=== PATIENT | female | born 1970 | race Caucasian/White ===

== ENCOUNTER → 2023-08-15 09:09 | Outpatient (CLI) | payer BC, SELFPAY ==
--- NOTE | 2023-08-15 09:13 | DI.RAD.S_ITS ---
PROCEDURE: XR FOOT RT MIN 3V INDICATIONS: invert ankle 2dPTA, prox 4/5 meta tendr reduc weight bear TECHNIQUE: 3 views of the foot were acquired. COMPARISON: None. FINDINGS: Bones: No fractures or dislocations. No suspicious bony lesions. Soft tissues: No tibiotalar joint effusion. Achilles tendon appears normal. IMPRESSION: No acute bony abnormality. Dictated by: Alin Fernandez M.D. on 08/15/2023 at 9:51 Approved by: Alin Fernandez M.D. on 08/15/2023 at 9:54
--- NOTE | 2023-08-15 09:13 | DI.RAD.S_ITS ---
PROCEDURE: XR KNEE LT 3V INDICATIONS: lateral joint tenderness TECHNIQUE: 3 views of the knee were acquired. COMPARISON: None. FINDINGS: Bones: No fractures or dislocations. No suspicious bony lesions. Soft tissues: No joint effusion. No suspicious soft tissue calcifications. IMPRESSION: Normal left knee Dictated by: Alin Fernandez M.D. on 08/15/2023 at 9:54 Approved by: Alin Fernandez M.D. on 08/15/2023 at 9:55
== END ==
PROVIDERS: Referring Provider Student in an Organized Health Care Education/Training Program; Visit Provider Student in an Organized Health Care Education/Training Program
DX: S93.601A Unspecified sprain of right foot, initial encounter (principal); M25.562 Pain in left knee; W19.XXXA Unspecified fall, initial encounter
CPT/HCPCS: 73562; 73630

== ENCOUNTER → 2023-12-14 08:29 | Outpatient (CLI) | payer OTHER, SELFPAY ==
[2023-12-14 09:13] LABS: Add Manual Diff / Slide Review NO; Basophils Absolute Auto 0 /uL (0-100); Eosinophils Absolute Auto 100 /uL (0-450); Hematocrit 44.2 % (36-46); Hemoglobin 15.6 g/dL (12.0-16.0); Lymphocytes Absolute Auto 1100 /uL (1100-4500); Lymphocytes Percent Auto 24.2 % (25-40); Mean Corpuscular HGB Conc 35.4 % (30-36); Mean Corpuscular Hemoglobin 31.8 PG (26-34); Mean Corpuscular Volume 89.8 fL (80-100); Monocytes Absolute Auto 400 /uL (0-900); Monocytes Percent Auto 8.9 % (3-14); Neutrophils Absolute Auto 3000 /uL (1500-7000); Neutrophils Percent Auto 63.9 % (50-75); Platelet Count 209 X10^3/uL (150-400); Red Blood Cell Count 4.92 X10^6/uL (4.0-5.2); Red Cell Distribution Width 13.3 % (11.6-14.8); White Blood Cell Count 4.7 X10^3/uL (4.5-11.0)
[2023-12-14 09:43] LABS: Alanine Aminotransferase 15 IU/L (<35); Albumin 4.3 g/dL (3.5-5.0); Albumin Globulin Ratio 1.4 (1.0-2.8); Alkaline Phosphatase 59 U/L (38-126); Aspartate Aminotransferase 23 IU/L (14-36); Bilirubin Total 1.2 mg/dL (0.2-1.3); Blood Urea Nitrogen 14 mg/dL (7-17); Calcium 9.6 mg/dL (8.4-10.2); Carbon Dioxide 29 mmol/L (22-32); Chloride 104 mmol/L (98-107); Cholesterol 182 mg/dL (140-199); Estimated Glomerular Filt Rate > 60 mL/min (>60); Glucose 77 mg/dL (70-100); HDL Cholesterol 72 mg/dL (40-60); HEMOLYSIS < 15 (0-50); LDL Cholesterol Calculated 98 mg/dL (<100); Potassium 3.1 mmol/L (3.4-5.1); Sodium 139 mmol/L (137-145); Total Protein 7.3 g/dL (6.3-8.2); Triglycerides 61 mg/dL (35-150)
[2023-12-14 10:31] LABS: Free T3, Triiodothyronine Free 3.04 pg/mL (2.77-5.27); Free T4, Direct Thyroxine 1.39 ng/dL (0.78-2.19)
[2023-12-14 10:44] LABS: Thyroid Stimulating Hormone 2.12 uIU/mL (0.47-4.68)
[2023-12-15 10:30] LABS: Thyroid Peroxidase Antibodies 51 IU/mL (0-34)
== END ==
LOC: LAB 08:31
PROVIDERS: PCP Naturopath; Referring Provider Naturopath; Visit Provider Naturopath
DX: Z00.00 Encounter for general adult medical examination without abnormal findings (principal)
CPT/HCPCS: 36415; 80053; 80061; 84439; 84443; 84481; 85025; 86376

== ENCOUNTER → 2024-01-14 11:49 | Outpatient (CLI) | payer OTHER, SELFPAY ==
[2024-01-14 13:26] LABS: Carbon Dioxide 27 mmol/L (22-32); Chloride 108 mmol/L (98-107); HEMOLYSIS < 15 (0-50); Potassium 4.1 mmol/L (3.4-5.1); Sodium 140 mmol/L (137-145)
== END ==
PROVIDERS: PCP Naturopath; Referring Provider Naturopath; Visit Provider Naturopath
DX: E87.6 Hypokalemia (principal)
CPT/HCPCS: 36415; 80051

== ENCOUNTER → 2025-01-28 06:58 | Outpatient (CLI) | payer OTHER, SELFPAY ==
[2025-01-28 07:43] LABS: Add Manual Diff / Slide Review NO; Basophils Absolute Auto 0 /uL (0-100); Basophils Percent Auto 0.9 % (0-2); Eosinophils Absolute Auto 100 /uL (0-450); Eosinophils Percent Auto 3.8 % (2-4); Hematocrit 45.4 % (36-46); Hemoglobin 15.8 g/dL (12.0-16.0); Lymphocytes Absolute Auto 1200 /uL (1100-4500); Lymphocytes Percent Auto 33.2 % (25-40); Mean Corpuscular HGB Conc 34.8 % (30-36); Mean Corpuscular Hemoglobin 32.2 PG (26-34); Mean Corpuscular Volume 92.5 fL (80-100); Monocytes Absolute Auto 300 /uL (0-900); Monocytes Percent Auto 7.9 % (3-14); Neutrophils Absolute Auto 1900 /uL (1500-7000); Neutrophils Percent Auto 54.2 % (50-75); Platelet Count 162 X10^3/uL (150-400); Red Cell Distribution Width 13.2 % (11.6-14.8); White Blood Cell Count 3.6 X10^3/uL (4.5-11.0)
[2025-01-28 07:58] LABS: Alanine Aminotransferase 16 IU/L (<35); Albumin 4.5 g/dL (3.5-5.0); Albumin Globulin Ratio 1.6 (1.0-2.8); Alkaline Phosphatase 52 U/L (38-126); Aspartate Aminotransferase 25 IU/L (14-36); Bilirubin Total 1.1 mg/dL (0.2-1.3); Blood Urea Nitrogen 13 mg/dL (7-17); Calcium 9.4 mg/dL (8.4-10.2); Carbon Dioxide 26 mmol/L (22-32); Chloride 105 mmol/L (98-107); Cholesterol 214 mg/dL (140-199); Estimated Glomerular Filt Rate > 60 mL/min (>60); Globulin 2.8 g/dL (1.7-4.1); Glucose 76 mg/dL (70-100); HDL Cholesterol 78 mg/dL (40-60); HEMOLYSIS 18 (0-50); LDL Cholesterol Calculated 122 mg/dL (<100); Potassium 4.4 mmol/L (3.4-5.1); Sodium 139 mmol/L (137-145); Total Protein 7.3 g/dL (6.3-8.2); Triglycerides 71 mg/dL (35-150)
[2025-01-28 08:21] LABS: Free T3, Triiodothyronine Free 3.32 pg/mL (2.77-5.27); Free T4, Direct Thyroxine 1.22 ng/dL (0.78-2.19)
[2025-01-28 08:35] LABS: Thyroid Stimulating Hormone 5.54 uIU/mL (0.47-4.68)
[2025-01-28 08:47] LABS: Estradiol, Total 31.3 pg/mL
[2025-01-29 06:36] LABS: Thyroid Peroxidase Antibodies 80 IU/mL (0-34)
== END ==
PROVIDERS: PCP Naturopath; Referring Provider Naturopath; Visit Provider Naturopath
DX: Z00.00 Encounter for general adult medical examination without abnormal findings (principal); I89.0 Lymphedema, not elsewhere classified; R53.83 Other fatigue; E03.9 Hypothyroidism, unspecified
CPT/HCPCS: 36415; 80053; 80061; 82670; 84439; 84443; 84481; 85025; 86376

== ENCOUNTER → 2025-03-06 09:35 | Outpatient (CLI) | payer OTHER, SELFPAY ==
[2025-03-06 10:20] LABS: Erythrocyte Sedimentation Rate 5 MM/HR (0-20)
[2025-03-06 10:22] LABS: C-Reactive Protein Quant < 0.5 mg/dL (<1.0)
[2025-03-06 10:24] LABS: Rheumatoid Factor 13.8 IU/mL (<12.0)
[2025-03-06 10:55] LABS: Cancer Antigen 125 < 5.5 U/mL (0-35)
[2025-03-10 10:37] LABS: Human Epididymis Prot 4 54.1 pmol/L (0.0-105.2)
[2025-03-10 20:13] LABS: Antimyeloperoxidase Antibodies <0.2 units (0.0-0.9); Antiproteinase 3 Antibodies <0.2 units (0.0-0.9); Cytoplasmic C-ANCA <1:20 titer (Neg:<1:20); Perinuclear P-ANCA <1:20 titer (Neg:<1:20)
== END ==
PROVIDERS: PCP Naturopath; Visit Provider Obstetrics & Gynecology
DX: Z15.01 Genetic susceptibility to malignant neoplasm of breast (principal); Z15.02 Genetic susceptibility to malignant neoplasm of ovary; Z15.09 Genetic susceptibility to other malignant neoplasm; M25.50 Pain in unspecified joint
CPT/HCPCS: 36415; 85651; 86140; 86256; 86304; 86305; 86430

== ENCOUNTER → 2025-03-20 13:27 | Outpatient (CLI) | payer OTHER, SELFPAY ==
[2025-03-20 14:04] LABS: Add Manual Diff / Slide Review NO; Basophils Absolute Auto 0 /uL (0-100); Basophils Percent Auto 0.8 % (0-2); Eosinophils Absolute Auto 100 /uL (0-450); Eosinophils Percent Auto 2.2 % (2-4); Hematocrit 43.3 % (36-46); Hemoglobin 14.8 g/dL (12.0-16.0); Lymphocytes Absolute Auto 1400 /uL (1100-4500); Mean Corpuscular HGB Conc 34.2 % (30-36); Mean Corpuscular Hemoglobin 32.4 PG (26-34); Mean Corpuscular Volume 94.8 fL (80-100); Monocytes Absolute Auto 500 /uL (0-900); Neutrophils Absolute Auto 3700 /uL (1500-7000); Platelet Count 187 X10^3/uL (150-400); Red Blood Cell Count 4.57 X10^6/uL (4.0-5.2); Red Cell Distribution Width 13.4 % (11.6-14.8); White Blood Cell Count 5.8 X10^3/uL (4.5-11.0)
[2025-03-20 14:42] LABS: Free T3, Triiodothyronine Free 3.34 pg/mL (2.77-5.27); Free T4, Direct Thyroxine 1.37 ng/dL (0.78-2.19)
[2025-03-20 14:56] LABS: Thyroid Stimulating Hormone 2.45 uIU/mL (0.47-4.68)
== END ==
PROVIDERS: PCP Naturopath; Referring Provider Naturopath; Visit Provider Naturopath
DX: D72.819 Decreased white blood cell count, unspecified (principal); E03.9 Hypothyroidism, unspecified
CPT/HCPCS: 36415; 84439; 84443; 84481; 85025; 86850

== ENCOUNTER → 2025-03-25 10:34 | Outpatient (CLI) | payer OTHER, SELFPAY ==
[2025-03-25 12:45] LABS: Vitamin D 25 Hydroxy (D3) 38.2 ng/mL (30.0-100.0)
[2025-03-27 11:09] LABS: CCP Antibodies IgG/IgA 9 units (0-19)
[2025-03-27 11:36] LABS: ANA Screen, IFA Negative (.)
== END ==
LOC: LAB 10:35
PROVIDERS: PCP Naturopath; Referring Provider Naturopath; Visit Provider Naturopath
DX: M25.50 Pain in unspecified joint (principal); R76.8 Other specified abnormal immunological findings in serum
CPT/HCPCS: 36415; 82306; 86038; 86200

== ENCOUNTER → 2025-04-30 07:17 | Outpatient (CLI) | payer OTHER, SELFPAY ==
--- NOTE | 2025-04-30 07:17 | DI.US.S_ITS ---
PROCEDURE: US ABDOMEN LIMITED INDICATIONS: PALPABLE LUMP LEFT OF SACRAL SPINE TECHNIQUE: Real-time focused scanning was performed of the left sacral region with image documentation. COMPARISON: None. FINDINGS: In the area of clinical concern in the left sacral region, there is no sonographic abnormality visualized. IMPRESSION: No sonographic abnormality in the area of clinical concern in the left parasacral region. Approved by: Kavita Nunes M.D.,Ph.D. on 04/30/2025 at 13:09
== END ==
PROVIDERS: PCP Naturopath; Referring Provider Naturopath; Visit Provider Naturopath
DX: R22.2 Localized swelling, mass and lump, trunk (principal)
CPT/HCPCS: 76705

== ENCOUNTER 2025-08-21 00:08 | Emergency (ER) | payer OTHER, SELFPAY ==
[2025-08-21] VITALS (10 sets, daily range): BP systolic 105–123; BP diastolic 58–82; PULSE 55–84; RESP 12–32; TEMP 36.7; O2SAT 92–100; BMI 22.6
--- NOTE | 2025-08-21 00:14 | ED.SYNCOPE ---
HPI - Syncope General Chief Complaint: Syncope Stated Complaint: Near Syncope Time Seen by Provider: 08/21/25 00:09 History of Present Illness HPI narrative: 55-year-old female with a past medical history of hypothyroidism comes into the ED from home via EMS for evaluation of syncopal episode. She states that today she woke up felt ?off went to the restroom and had a witnessed syncopal episode. Patient at time of evaluation just complaining of a pressure in her head she is moving all 4 extremities spontaneously not complaining of any chest pain shortness breath fever chills nausea vomiting abdominal pain or any other GI/ symptoms time. Not on any blood thinners. She states that this has happened in the past and it was secondary to low potassium. She is not on any blood thinners not complaining of any other symptoms at this time. Related Data Home Medications ?Medication ?Instructions ?Recorded ?Confirmed estradiol 0.05 mg/24 hr semiweekly 1 patch transdermal 2XW 02/23/25 05/20/25 transdermal patch levothyroxine 50 mcg tablet 50 mcg PO DAILY 02/23/25 05/20/25 (Synthroid) levothyroxine 75 mcg tablet 75 mcg PO DAILY 02/23/25 05/20/25 (Synthroid) estradiol 0.075 mg/24 hr transdermal Outside provider 04/07/25 05/20/25 semiweekly transdermal patch Previous Rx's ?Medication ?Instructions ?Recorded estradiol 0.01% (0.1 mg/gram) 1 g vaginal DAILY #42.5 grams 03/06/25 vaginal cream (Estrace) clobetasol 0.05 % topical cream 1 applic topical DAILY #30 grams 05/20/25 ondansetron HCl 4 mg tablet 4 mg PO Q8H PRN nausea and 08/21/25 vomiting 5 days #15 tabs Allergies Allergy/AdvReac Type Severity Reaction Status Date / Time Sulfa (Sulfonamide AdvReac Anaphylaxis Verified 08/21/25 00:25 Antibiotics) Review of Systems Review of Systems Narrative: General: Positive syncope, Denies fever, chills, weight loss HEENT: Positive headache, denies eye drainage, eye irritation, head trauma, sore throat, voice change Cardiovascular: Denies any chest pain, palpitations, tachycardia Respiratory: Denies any shortness of breath, cough, wheeze, stridor GI/: Denies any abdominal pain, nausea, vomiting, diarrhea, bright red blood per rectum, melanotic stools, urinary frequency, urinary retention, dysuria, hematuria MSK: Denies any joint pain, muscle pains, swelling Skin: Cut to the right eyebrow Neuro: Denies any headache, lightheadedness, dizziness, fainting, weakness Psych: Denies SI/HI Patient History Medical History (Updated 08/21/25 @ 00:55 by Satinder Macedo DO) Primary osteoarthritis of right knee Genitourinary syndrome of menopause Lichen sclerosus et atrophicus of the vulva Joint pain 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 Dyspareunia due to medical condition in female Social History Smoking Status: Never smoker Exam Narrative Exam Narrative: General: Cooperative, well-developed, not in acute distress HEENT: Patient with hematoma noted to the right side of forehead and right upper eyelid, patient with 1 cm laceration noted to the right upper eyelid, PERRLA, normal sclera, eyelids normal Neck: Active full range of motion, atraumatic Chest: Normal to inspection, negative crepitus, no overlying erythema ecchymosis Respiratory: Normal respiratory effort, not in acute respiratory distress, clear to auscultation bilaterally negative cough, wheeze, tachypnea, rhonchi, rales Cardiology: Regular rate rhythm negative gallop, murmur, rubs GI/: No tenderness to palpation, soft, non rigid, normal to inspection, exam deferred MSK: Full active range of motion in all 4 extremities, atraumatic, no tenderness to palpation of any bony prominences Skin: No rashes or lesions noted Neuro: NIH of 0 Alert awake oriented x3, moves all 4 extremities spontaneously, cranial nerves intact, able to answer all questions appropriately follows commands appropriately Psych: Cooperative, negative suicidal or homicidal ideations Initial Vital Signs Initial Vital Signs: Vital Signs Pulse Rate 55 L 08/21/25 00:15 Respiratory Rate 30 H 08/21/25 00:15 Blood Pressure 123/60 08/21/25 00:15 Pulse Oximetry 99 08/21/25 00:15 Procedures Laceration Repair Laceration 1: Time of procedure: 00:52 Site: face Side (If applicable): right Size (cm): 1 Description: linear Depth: simple, single layer Local Anesthetic: lidocaine 1% Amount of anesthesia used (mL): 2 Pre-repair: wound explored, irrigated extensively and deep structures intact Skin layer closed with: other (ethilon) Skin layer suture size: 5-0 Number of sutures: 3 Technique: simple, interrupted Course Orders Ordered: ED Orders 08/21/25 00:07 Complete Blood Count AUTO DIFF Stat Comprehensive Metabolic Panel Stat Lactate (Lactic Acid) Stat Lipase Stat Magnesium Stat NT-proBNP (BNP-Adult 18+) Stat PTT Partial Thromboplastin Joni Stat Prothrombin Time INR Stat Troponin I Stat 08/21/25 00:15 XR chest 1V Stat EKG-12 Lead Stat 08/21/25 00:16 CT cervical spine wo con Stat CT head/brain wo con Stat Discontinued Medications Dexamethasone (Dexamethasone 10 Mg/Ml Vial) 10 mg IV NOW ONE Stop: 08/21/25 01:35 Last Admin: 08/21/25 01:38 Dose: 10 mg Documented By: CHELSY Diphenhydramine HCl (Diphenhydramine 50 Mg/Ml Vial) 25 mg IV NOW ONE Stop: 08/21/25 01:35 Last Admin: 08/21/25 01:38 Dose: 25 mg Documented By: CHELSY Diphtheria/Tetanus/Acell Pertussis (Tet,Diph,Pertuss(Acell),Vac/Pf 0.5 Ml Syringe) 0.5 ml IM .ONCE ONE Stop: 08/21/25 00:16 Last Admin: 08/21/25 01:59 Dose: 0.5 ml Sodium Chloride (Normal Saline 0.9%) 1,000 mls @ 1,000 mls/hr IV BOLUS ONE Stop: 08/21/25 01:14 Last Admin: 08/21/25 00:47 Dose: 1,000 mls/hr Documented By: CHELSY Metoclopramide HCl (Metoclopramide 10 Mg/2 Ml Inj) 10 mg IV NOW ONE Stop: 08/21/25 01:35 Last Admin: 08/21/25 01:38 Dose: 10 mg Documented By: CHELSY Ondansetron HCl (Ondansetron 4 Mg/2 Ml Inj) 4 mg IV NOW ONE Stop: 08/21/25 00:16 Last Admin: 08/21/25 00:46 Dose: 4 mg Documented By: CHELSY Potassium Chloride (Potassium Chloride 20 Meq Tab) 40 meq PO NOW ONE Stop: 08/21/25 00:54 Last Admin: 08/21/25 01:58 Dose: 40 meq Vital Signs Vital signs: Vital Signs - 8 hr 08/21/25 00:15 08/21/25 00:15 08/21/25 00:24 Temperature 98.1 F Pulse Rate 55 L 59 L Respiratory Rate 30 H 19 Blood Pressure 123/60 123/60 Pulse Oximetry 99 100 Oxygen Delivery Method Room Air 08/21/25 00:35 08/21/25 01:00 08/21/25 01:30 Temperature Pulse Rate 66 64 57 L Respiratory Rate 13 12 Blood Pressure Pulse Oximetry 99 97 95 Oxygen Delivery Method 08/21/25 01:43 08/21/25 01:43 08/21/25 02:00 Temperature Pulse Rate 84 79 Respiratory Rate 25 H 32 H Blood Pressure 123/82 Pulse Oximetry 98 92 Oxygen Delivery Method 08/21/25 02:01 08/21/25 02:01 08/21/25 02:30 Temperature Pulse Rate 76 Respiratory Rate 22 Blood Pressure 117/61 116/65 Pulse Oximetry 98 Oxygen Delivery Method Room Air 08/21/25 02:30 Temperature Pulse Rate 74 Respiratory Rate 15 Blood Pressure Pulse Oximetry 98 Oxygen Delivery Method Room Air MDM - Syncope Lab Data 08/21/25 00:07 08/21/25 00:07 Labs: Lab Results 08/21/25 08/21/25 Range/Units 00:07 02:30 WBC 6.2 (4.5-11.0) X10^3/uL RBC 4.73 (4.0-5.2) X10^6/uL Hgb 15.3 (12.0-16.0) g/dL Hct 42.9 (36-46) % MCV 90.7 (80-100) fL MCH 32.3 (26-34) PG MCHC 35.6 (30-36) % RDW 12.6 (11.6-14.8) % Plt Count 206 (150-400) X10^3/uL Neut % (Auto) 43.6 L (50-75) % Lymph % (Auto) 42.2 H (25-40) % Rolette % (Auto) 9.8 (3-14) % Eos % (Auto) 3.5 (2-4) % Baso % (Auto) 0.9 (0-2) % Neut # (Auto) 2700 (9043-3253) /uL Lymph # (Auto) 2600 (5470-7552) /uL Rolette # (Auto) 600 (0-900) /uL Eos # (Auto) 200 (0-450) /uL Baso # (Auto) 100 (0-100) /uL PT 10.2 (9.4-12.5) SECONDS INR 0.9 (0.9-1.3) APTT 26 (25.1-36.5) SECONDS Sodium 137 (137-145) mmol/L Potassium 3.3 L (3.4-5.1) mmol/L Chloride 107 (98-107) mmol/L Carbon Dioxide 22 (22-32) mmol/L BUN 17 (7-17) mg/dL Creatinine 0.83 (0.52-1.04) mg/dL Estimated GFR > 60 (>60) mL/min BUN/Creatinine Ratio 20.5 (6-22) Glucose 140 H (70-99) mg/dL Lactate 2.3 H 0.7 (0.7-2.1) mmol/L Calcium 9.5 (8.4-10.2) mg/dL Magnesium 2.0 (1.6-2.3) mg/dL Total Bilirubin 0.5 (0.2-1.3) mg/dL AST 26 (14-36) IU/L ALT 16 (<35) IU/L Alkaline Phosphatase 56 (38-126) U/L Troponin I < 0.012 (0.01-0.034) ng/mL NT-Pro-B Natriuret Pep 40 (<125) pg/mL Total Protein 7.3 (6.3-8.2) g/dL Albumin 4.3 (3.5-5.0) g/dL Globulin 3.0 (1.7-4.1) g/dL Albumin/Globulin Ratio 1.4 (1.0-2.8) Lipase 138 (23-300) U/L ECG Data Interpretation: EKG interpreted ED physician sinus bradycardia 57 beats per minute QTC 436, QRS WI interval within normal limits, no STEMI MDM Narrative Medical decision making narrative: 55-year-old female with past medical history of hypothyroidism comes into the ED via EMS for evaluation of syncopal episode. Patient states that she woke up feeling ?off states that she felt like she might have had a pressure in her head, states that she went to the restroom and had a witnessed syncopal episode by her . No seizure-like activity according to has been patient was just ?out for no more than 5-10 seconds. Patient without any postictal symptoms. Patient states this has happened to her previously and it was secondary to low potassium. She is on complaining of a headache after hitting her head, on exam she does have a hematoma to her right forehead, 1 cm laceration to her right upper eyelid but does not involve the eye itself. At time of my evaluation patient NIH of [address] scan of the head and neck without any acute injuries. Lab work does not show any signs of leukocytosis, creatinine normal. Initial lactate slightly elevated at 2.3 with repeat after 1 L normal saline at 0.7, patient did have laceration repair of her right eyelid 3 simple interrupted sutures with 5 0 Ethilon were placed. Chest x-ray without any acute cardiopulmonary abnormality, patient did have slight hypokalemia of 3.3 which was repleted here, patient with resolved symptoms after administration of medication here. Patient states that she is already in the process of getting a appointment with the customer marketing assistant, she states that she has this appointment because she is being worked up for POTS, she feels comfortable being discharged home with strict return precautions patient will be discharged home with symptomatic relief and strict return precautions. 0155: Patient was re-evaluated, stating that she is still feeling a little nauseous denies any actual lightheadedness or dizziness. We will order migraine cocktail and continue the watch and monitor patient here Discharge Plan Departure Patient Disposition: Home Clinical Impression: Syncope and collapse, Closed head injury Instructions: DI for Syncope in Adults (Fainting), DI for Laceration Repair Activity Restrictions/Additional Instructions: You have 3 sutures that need to be removed in approximately 5-7 days Please follow up with your primary care doctor and your customer marketing assistant Please read the discharge instructions sheet carefully and bring all papers to all doctor follow-up visits, as it may contain information that your doctor may want to see. Disease processes change and evolve, if your symptoms worsen or if you develop any new symptoms that are concerning to you please return for evaluation. Your evaluation today does not show any evidence of any life-threatening/serious illnesses requiring admission to the hospital or surgery. Please follow-up with your doctor for re-evaluation in approximately 1 day. Seek immediate medical attention for any worrisome symptoms. *If you do not have a primary care provider please contact the [facility] Resource line at [phone]. They will ask some questions about your medical history and help get you set up with a doctor in the community. Prescriptions: New ondansetron HCl 4 mg tablet 4 mg PO Q8H PRN (Reason: nausea and vomiting) 5 Days Qty: 15 0RF No Action estradiol 0.05 mg/24 hr patch semiweekly 1 patch transdermal 2XW levothyroxine [Synthroid] 75 mcg tablet 75 mcg PO DAILY levothyroxine [Synthroid] 50 mcg tablet 50 mcg PO DAILY estradiol [Estrace] 0.01 % (0.1 mg/gram) cream 1 g vaginal DAILY Qty: 42.5 3RF Rx Instructions: apply 1cm (1g) of cream to area as directed 2-3 times weekly alternating with clobetasol therapy clobetasol 0.05 % cream 1 applic topical DAILY Qty: 30 3RF Rx Instructions: apply thin film of medication to area as directed 2-3 times weekly alternating with topical estrace therapy estradiol 0.075 mg/24 hr patch semiweekly transdermal Referrals: Cinthia Ann ND [Primary Care Provider, Naturopathy] Stand Alone Forms: Patient Portal/API
--- NOTE | 2025-08-21 00:15 | EKG_ITS ---
[facility]
--- NOTE | 2025-08-21 00:15 | DI.RAD.S_ITS ---
PROCEDURE: XR CHEST 1V
--- NOTE | 2025-08-21 00:16 | DI.CT.S_ITS ---
PROCEDURE: CT HEAD/BRAIN WO CON
--- NOTE | 2025-08-21 00:16 | DI.CT.S_ITS ---
PROCEDURE: CT CERVICAL SPINE WO CON
[2025-08-21 00:36] LABS: Add Manual Diff / Slide Review NO; Hematocrit 42.9 % (36-46); Hemoglobin 15.3 g/dL (12.0-16.0); INR 0.9 (0.9-1.3); Lymphocytes Absolute Auto 2600 /uL (1100-4500); Mean Corpuscular HGB Conc 35.6 % (30-36); Mean Corpuscular Hemoglobin 32.3 PG (26-34); Mean Corpuscular Volume 90.7 fL (80-100); Platelet Count 206 X10^3/uL (150-400); Prothrombin Time 10.2 SECONDS (9.4-12.5)
[2025-08-21 00:38] LABS: PTT Partial Thromboplastin Tim 26 SECONDS (25.1-36.5)
[2025-08-21 00:39] LABS: Alanine Aminotransferase 16 IU/L (<35); Albumin 4.3 g/dL (3.5-5.0); Albumin Globulin Ratio 1.4 (1.0-2.8); Alkaline Phosphatase 56 U/L (38-126); Blood Urea Nitrogen 17 mg/dL (7-17); Calcium 9.5 mg/dL (8.4-10.2); Carbon Dioxide 22 mmol/L (22-32); Chloride 107 mmol/L (98-107); Estimated Glomerular Filt Rate > 60 mL/min (>60); Globulin 3.0 g/dL (1.7-4.1); Glucose 140 mg/dL (70-99); HEMOLYSIS < 15 (0-50); Lactate (Lactic Acid) 2.3 mmol/L (0.7-2.1); Lipase 138 U/L (23-300); Magnesium 2.0 mg/dL (1.6-2.3); Potassium 3.3 mmol/L (3.4-5.1); Sodium 137 mmol/L (137-145); Total Protein 7.3 g/dL (6.3-8.2)
[2025-08-21] MEDS: ONDANSETRON 4 MG/2 ML INJ IV (00:46)
[2025-08-21] MEDS: SODIUM CHLORIDE 0.9% 1,000 ML 1000 ML IV (00:47)
[2025-08-21 00:50] LABS: NT-proBNP (BNP-Adult 18+) 40 pg/mL (<125); Troponin I < 0.012 ng/mL (0.01-0.034)
[2025-08-21] MEDS: diphenhydrAMINE 50 MG/ML VIAL 25 MG IV (01:38)
[2025-08-21] MEDS: METOCLOPRAMIDE 10 MG/2 ML INJ IV (01:38)
[2025-08-21 01:55] LABS: Reflexed Lactate in 2 Hours Y
[2025-08-21] MEDS: POTASSIUM CHLORIDE 20 MEQ TAB 40 MEQ PO (01:58)
[2025-08-21] MEDS: TET,DIPH,PERTUSS(ACELL),VAC/PF 0.5 ML SYRINGE IM (01:59)
[2025-08-21 02:47] LABS: Lactate 2HR (Lactic Acid Rflx) 0.7 mmol/L (0.7-2.1)
== END 2025-08-21 03:20 | disposition home or self-care (01) ==
PROVIDERS: Emergency Provider Student in an Organized Health Care Education/Training Program; PCP Naturopath
DX: R55 Syncope and collapse (principal); S09.90XA Unspecified injury of head, initial encounter; E87.6 Hypokalemia; R42 Dizziness and giddiness; Z23 Encounter for immunization
CPT/HCPCS: 12011; 36415; 70450; 71045; 72125; 80053; 83605; 83690; 83735; 83880; 84484; 85025; 85610; 85730; 90471; 93005; 96361; 96374; 96375; 99284; 90715; J1100; J1200; J2405; J2765; J7030

== ENCOUNTER 2025-08-25 15:00 | Observation (INO) | payer OTHER, SELFPAY ==
[2025-08-25] VITALS (8 sets, daily range): BP systolic 87–168; BP diastolic 50–96; PULSE 85–129; RESP 14–18; TEMP 36.6–36.8; O2SAT 97–100; BMI 22.6
--- NOTE | 2025-08-25 15:13 | DI.RAD.S_ITS ---
PROCEDURE: XR CHEST 1V INDICATIONS: Chest Pain TECHNIQUE: One view of the chest was acquired. COMPARISON: [facility], CR, XR CHEST 1V, 08/21/2025, 0:41. FINDINGS: Surgical changes and devices: Surgical clips are seen in bilateral axilla. Lungs and pleura: Lungs are clear. No pleural effusions or pneumothorax. Mediastinum: Mediastinal contours appear normal. Heart size is normal. Bones and chest wall: No suspicious bony lesions. Overlying soft tissues appear unremarkable. IMPRESSION: No acute cardiopulmonary pathology. Dictated by: Samuel Ferguson M.D. on 08/25/2025 at 15:35 Approved by: Samuel Ferguson M.D. on 08/25/2025 at 15:35
--- NOTE | 2025-08-25 15:19 | EKG_ITS ---
[address] [address] Test Date: 2025-08-25 Pat Name: Mana Waddell Department: [facility] Room: Gender: Female Property Master: IFEANYI : 1970 Requested By: Order Number: [id number] Reading MD: Mohsen Malave MD Measurements Intervals [place] Rate: 87 P: 70 IN: 138 QRS: 71 QRSD: 84 T: 75 QT: 354 QTc: 425 Interpretive Statements Normal sinus rhythm Electronically Signed On 08-25-2025 16:53:01 PST by Mohsen Malave MD
--- NOTE | 2025-08-25 15:29 | ED_ITS ---
HPI - Arrhythmia/Palpitations General Chief Complaint: Arrhythmia/Palpitations Stated Complaint: WIC ref, palpitations, HBP Time Seen by Provider: 08/25/25 15:20 Source: patient Mode of arrival: Ambulatory History of Present Illness HPI narrative: Patient is seen here August 21, 2025 for syncopal episodes at home. Patient states she felt her normal self on when out for cocktails that evening with a friend but only had a few drinks. Went to bed at 9:00 p.m. her usual self and then awoke around 11:00 p.m. felt discomfort in her epigastric area that radiated upwards for no abdominal pain back pain or chest pain. She went to the bathroom and awoke on the floor. She had a couple of syncopal episodes, was there trying to help her. She was brought here for evaluation and did have CT head cervical spine. Patient had 3 stitches placed in the right eyebrow area. Here today to the walk-in clinic to have them removed and also to inform about palpitations off and on all day. At rest and with movement. No personal family history of coronary disease he is or pulmonary embolism or aortic aneurysms. Patient does have history of thyroid disease and tested positive for BRCA2 gene mutation. Mother had history of breast cancer. Heart rate noted on triage but resolved with EKG. Patient in no distress at this time. Through the weekend she did have some palpitations but thought it was more related due to head injury. 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 Patient denies any chest pain abdominal pain back pain at this time. No numbness or tingling weakness to the limbs. No syncope today. Related Data Home Medications ?Medication ?Instructions ?Recorded ?Confirmed estradiol 0.05 mg/24 hr semiweekly 1 patch transdermal 2XW 02/23/25 08/25/25 transdermal patch levothyroxine 75 mcg tablet 75 mcg PO DAILY 02/23/25 1 10/25/24 (Synthroid) estradiol 0.075 mg/24 hr transdermal Outside provider 04/07/25 05/20/25 semiweekly transdermal patch diazepam 5 mg tablet 5 mg PO DAILY PRN anxiety 08/25/25 Previous Rx's ?Medication ?Instructions ?Recorded estradiol 0.01% (0.1 mg/gram) 1 g vaginal DAILY #42.5 grams 03/06/25 vaginal cream (Estrace) clobetasol 0.05 % topical cream 1 applic topical DAILY #30 grams 05/20/25 Allergies Allergy/AdvReac Type Severity Reaction Status Date / Time Sulfa (Sulfonamide AdvReac Anaphylaxis Verified 08/21/25 00:25 Antibiotics) Review of Systems Review of Systems Narrative: GENERAL: Negative chills, fatigue, malaise, fever, sweats. HEENT: Negative sinus pain, ear pain, sore throat RESPIRATORY: Negative dyspnea, cough CARDIOVASCULAR: Positive chest pain, positive palpitations GASTROINTESTINAL: Negative vomiting, nausea, abdominal pain : Negative dysuria, frequency, hematuria MUSCULOSKELETAL: Negative muscle or bony pain SKIN: Negative rash, skin lesions NEUROLOGIC: Negative weakness, numbness, positive syncope ROS Unobtainable: All systems reviewed & are unremarkable except as noted in HPI and below Patient History Medical History Primary osteoarthritis of right knee Genitourinary syndrome of menopause Lichen sclerosus et atrophicus of the vulva Joint pain 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 Dyspareunia due to medical condition in female Social History household members: spouse and children Smoking Status: Never smoker alcohol intake: current Alcohol type: wine Exam Narrative Exam Narrative: GENERAL: in no distress, not toxic not dyspneic HEAD: Normocephalic. Healing right periorbital ecchymosis EYES: Pupils equal round ENT: Mucous membranes moist. NECK: Trachea midline. CARDIOVASCULAR: Regular rate and rhythm RESPIRATORY: Clear to auscultation. Breath sounds equal bilaterally. No wheezes, rales, or rhonchi. GASTROINTESTINAL: Abdomen soft, non-tender BACK: No flank tenderness. EXTREMITIES: No gross deformities. NEURO: AOx4. Clear speech SKIN: Warm and dry PSYCH: Not anxious, is cooperative Initial Vital Signs Initial Vital Signs: Vital Signs Temperature 97.8 F 08/25/25 15:06 Pulse Rate 129 H 08/25/25 15:06 Respiratory Rate 16 08/25/25 15:06 Blood Pressure 165/90 H 08/25/25 15:06 Pulse Oximetry 100 08/25/25 15:06 Oxygen Delivery Method Room Air 08/25/25 15:06 Scores HEART Score Heart Score history: Slightly Suspicious Heart Score EKG: Normal Heart Score Age: 45-64 years old Heart Score risk factors: 1-2 risk factors Heart Score troponin: < or = to normal limit Heart Score Total: 2 Course Orders Ordered: Discontinued Medications Acetaminophen (Acetaminophen 325 Mg Tablet) 650 mg PO Q6H PRN PRN Reason: Fever/Mild Pain (1-3) Aspirin (Aspirin 81 Mg Chew Tab) 324 mg PO NOW ONE Stop: 08/25/25 15:14 Last Admin: 08/25/25 15:29 Dose: Not Given Documented By: AB Sodium Chloride (Normal Saline 0.9%) 1,000 mls @ 1,000 mls/hr IV BOLUS ONE Stop: 08/25/25 16:29 Last Infusion: 08/25/25 17:03 Dose: Infused Documented By: Admin: 08/25/25 15:58 Dose: 1,000 mls/hr Documented By: AB Levothyroxine Sodium (Levothyroxine 75 Mcg Tablet) 75 mcg PO BEDTIME ELEAZAR Naloxone HCl (Naloxone 0.4 Mg/Ml Vial) 0.2 mg IV Q2MIN PRN PRN Reason: Opiate Reversal Nf - Levythyroxine ( (Synthroid) 75 Mcg) 75 mcg PO BEDTIME ELEAZAR Sodium Chloride (Sodium Chloride 0.9% Flush) 10 ml IV PRN PRN PRN Reason: Flush Sodium Chloride (Sodium Chloride 0.9% Flush) 10 ml IV BID ELEAZAR Vital Signs Vital signs: Vital Signs - 8 hr 08/25/25 15:06 08/25/25 16:13 08/25/25 16:15 Temperature 97.8 F Pulse Rate 129 H 85 Respiratory Rate 16 Blood Pressure 165/90 H 168/82 H Pulse Oximetry 100 Oxygen Delivery Method Room Air 08/25/25 16:15 08/25/25 16:32 Temperature Pulse Rate 90 94 H Respiratory Rate 16 Blood Pressure Pulse Oximetry 100 98 Oxygen Delivery Method MDM - Arrhythmia/Palpitations Lab Data 08/25/25 13:31 08/25/25 13:31 Labs: Lab Results 08/25/25 Range/Units 13:31 WBC 4.7 (4.5-11.0) X10^3/uL RBC 4.96 (4.0-5.2) X10^6/uL Hgb 15.9 (12.0-16.0) g/dL Hct 45.1 (36-46) % MCV 91.0 (80-100) fL MCH 32.0 (26-34) PG MCHC 35.1 (30-36) % RDW 13.0 (11.6-14.8) % Plt Count 185 (150-400) X10^3/uL Neut % (Auto) 66.2 (50-75) % Lymph % (Auto) 23.7 L (25-40) % [place] % (Auto) 7.1 (3-14) % Eos % (Auto) 2.0 (2-4) % Baso % (Auto) 1.0 (0-2) % Neut # (Auto) 3100 (0505-5229) /uL Lymph # (Auto) 1100 (7326-0260) /uL [place] # (Auto) 300 (0-900) /uL Eos # (Auto) 100 (0-450) /uL Baso # (Auto) 0 (0-100) /uL PT 12.1 (9.4-12.5) SECONDS INR 1.1 (0.9-1.3) APTT 31 (25.1-36.5) SECONDS Sodium 139 (137-145) mmol/L Potassium 3.7 (3.4-5.1) mmol/L Chloride 104 (98-107) mmol/L Carbon Dioxide 23 (22-32) mmol/L BUN 14 (7-17) mg/dL Creatinine 0.82 (0.52-1.04) mg/dL Estimated GFR > 60 (>60) mL/min BUN/Creatinine Ratio 17.1 (6-22) Glucose 97 (70-99) mg/dL Calcium 9.5 (8.4-10.2) mg/dL Magnesium 2.1 (1.6-2.3) mg/dL Total Bilirubin 1.2 (0.2-1.3) mg/dL AST 25 (14-36) IU/L ALT 16 (<35) IU/L Alkaline Phosphatase 66 (38-126) U/L Total Creatine Kinase < 20 L (30-135) U/L Troponin I < 0.012 (0.01-0.034) ng/mL NT-Pro-B Natriuret Pep 60 (<125) pg/mL Total Protein 8.3 H (6.3-8.2) g/dL Albumin 4.8 (3.5-5.0) g/dL Globulin 3.5 (1.7-4.1) g/dL Albumin/Globulin Ratio 1.4 (1.0-2.8) Lipase 91 (23-300) U/L TSH 3.75 (0.47-4.68) uIU/mL Urine Dip Bedside Urine Glucose Negative Bedside Urine Bilirubin - Negative Bedside Urine Ketone - Negative Urine Specific [place] 1.010 Bedside Urine Occult Blood - Negative Bedside Urine pH 6 Bedside Urine Protein - Negative Bedside Urine Urobilinogen - Negative Bedside Urine Nitrite - Negative Bedside Urine Leukocytes - Negative Esterase MDM Narrative Medical decision making narrative: Patient is seen here August 21, 2025 for syncopal episodes at home. Patient states she felt her normal self on when out for cocktails that evening with a friend but only had a few drinks. Went to bed at 9:00 p.m. her usual self and then awoke around 11:00 p.m. felt discomfort in her epigastric area that radiated upwards for no abdominal pain back pain or chest pain. She went to the bathroom and awoke on the floor. She had a couple of syncopal episodes, was there trying to help her. She was brought here for evaluation and did have CT head cervical spine. Patient had 3 stitches placed in the right eyebrow area. Here today to the walk-in clinic to have them removed and also to inform about palpitations off and on all day. At rest and with movement. No personal family history of coronary disease he is or pulmonary embolism or aortic aneurysms. Patient does have history of thyroid disease and tested positive for BRCA2 gene mutation. Mother had history of breast cancer. Heart rate noted on triage but resolved with EKG. Patient in no distress at this time. Through the weekend she did have some palpitations but thought it was more related due to head injury. 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 Patient denies any chest pain abdominal pain back pain at this time. No numbness or tingling weakness to the limbs. No syncope today. MDM After history and exam, CBC CMP troponin EKG CT angio chest abdomen pelvis Differential considered: Includes but not limited to aortic dissection pulmonary embolism STEMI non-STEMI Medical records reviewed: August 21, 2025 ER visit here notes Lab Test results independently reviewed as above. Pertinent findings: WBC 4.7 hemoglobin 15.9 INR 1.1 sodium 139 potassium 3.7 BUN 14 creatinine 0.82 GFR greater than 60 troponin less than 0.012 TSH 3.75 magnesium 2.1 Independently reviewed EKG normal sinus rhythm normal EKG rate 87 Imaging studies independently reviewed: Chest x-ray no acute finding, CT chest abdomen pelvis angiogram no PE, I did reviewed this with Dr. Ordonez radiologist. He does indicate likely sigmoid diverticulitis but on exam patient has no abdominal tenderness Consultations: 4:[address] Manning, hospitalist, he will admit patient, at this time clinically not diverticulitis. No antibiotics indicated at this time. Who will evaluate patient Re-evaluations: 4:45 p.m.. Reviewed results with patient and , at this time given symptoms continuing since her event . They do agree for admission for stress test. No chest discomfort or arrhythmia at this time. Discussion: IV contrast use for CT imaging. Appropriate for admission for stress test. Patient's symptoms have not resolved since her event last . Diagnosis: Atypical chest pain palpitations Discharge Plan Departure Patient Disposition: Admitted as Observation Clinical Impression: Atypical chest pain, Palpitations Admit Date/Time: 08/25/25 16:54 Admit Provider: Alessandro Manning
--- NOTE | 2025-08-25 15:30 | DI.CT.S_ITS ---
PROCEDURE: CT ANGIO CHEST ABDOMEN PELVIS INDICATIONS: Chest pain abdominal pain TECHNIQUE: Precontrast 5 mm thick sections acquired from the lung apices to the iliac crests. After the administration of intravenous contrast, 2.5 mm thick sections again acquired from the lung apices to the iliac crests. Maximum intensity projection (MIP) oblique sagittal and coronal reformats were then acquired. For radiation dose reduction, the following was used: automated exposure control. COMPARISON: None. FINDINGS: Image quality: Diagnostic. AORTA and its attachments: Ascending and descending thoracic aorta and abdominal aorta are of normal caliber without aneurysm or dissection or significant stenosis. Classic three-vessel arch anatomy. Great vessel origins are widely patent. SMA, celiac, and YOHANA are widely patent. Bilateral common iliacs and external iliacs are widely patent. Common femorals are widely patent. CHEST: Lower Neck: No enlarged lymph nodes. Thyroid: No thyroid nodules which require sonographic evaluation. Axillae: No enlarged lymph nodes. Chest Wall: Unremarkable. Lungs and Pleura: No pneumothorax or pleural effusions. No consolidation or suspicious nodules. Heart: Heart size is normal. No pericardial effusion. Thoracic Vessels: Pulmonary arteries demonstrate normal size. Mediastinum and [place]: No enlarged lymph nodes. Esophagus: No wall thickening. No hiatal hernia. ABDOMEN: Liver: No solid mass. Gallbladder: Absent Biliary ducts: No biliary dilation. Pancreas: No ductal dilation. Spleen: Size is within normal limits. Adrenal Glands: No adrenal nodules. Kidneys and Ureters: No hydronephrosis. No solid mass. No complex renal cystic lesion which requires follow up. Stomach and Bowel: Acute sigmoid diverticulitis. No free air. No abscess cavity. Severe underlying sigmoid diverticulosis. Peritoneum: No abnormal intraperitoneal fluid. No free air. Ventral Wall: No hernia. Abdominal Nodes: No retroperitoneal or mesenteric adenopathy by size criteria. Vessels: Inferior vena cava is normal in size. PELVIS: Pelvic Organs: Uterus is surgically absent. No adnexal masses.. Bladder: Unremarkable. Pelvic Nodes: No enlarged lymph nodes. Miscellaneous: No inguinal hernias are seen. Bones: Unremarkable. IMPRESSION: 1. Unremarkable thoracic and abdominal aorta and its attachments. 2. No acute process in the chest. 3. Sigmoid diverticulosis. Comment: If the patient has not had recent colonoscopy, recommend direct visualization after acute symptoms resolve to exclude underlying lesion. Dictated by: Raphael Ordonez M.D. on 08/25/2025 at 15:57 Approved by: Raphael Ordonez M.D. on 08/25/2025 at 16:03
[2025-08-25 15:44] LABS: Add Manual Diff / Slide Review NO; Hematocrit 45.1 % (36-46); Hemoglobin 15.9 g/dL (12.0-16.0); Lymphocytes Absolute Auto 1100 /uL (1100-4500); Mean Corpuscular HGB Conc 35.1 % (30-36); Mean Corpuscular Hemoglobin 32.0 PG (26-34); Mean Corpuscular Volume 91.0 fL (80-100); Platelet Count 185 X10^3/uL (150-400)
[2025-08-25 15:50] LABS: INR 1.1 (0.9-1.3); Prothrombin Time 12.1 SECONDS (9.4-12.5)
[2025-08-25 15:53] LABS: PTT Partial Thromboplastin Tim 31 SECONDS (25.1-36.5)
[2025-08-25] MEDS: SODIUM CHLORIDE 0.9% 1,000 ML 1000 ML IV (15:58)
[2025-08-25 16:01] LABS: Alanine Aminotransferase 16 IU/L (<35); Albumin 4.8 g/dL (3.5-5.0); Albumin Globulin Ratio 1.4 (1.0-2.8); Alkaline Phosphatase 66 U/L (38-126); Blood Urea Nitrogen 14 mg/dL (7-17); Calcium 9.5 mg/dL (8.4-10.2); Carbon Dioxide 23 mmol/L (22-32); Chloride 104 mmol/L (98-107); Creatine Kinase < 20 U/L (30-135); Estimated Glomerular Filt Rate > 60 mL/min (>60); Globulin 3.5 g/dL (1.7-4.1); Glucose 97 mg/dL (70-99); HEMOLYSIS < 15 (0-50); Lipase 91 U/L (23-300); Magnesium 2.1 mg/dL (1.6-2.3); Potassium 3.7 mmol/L (3.4-5.1); Sodium 139 mmol/L (137-145); Total Protein 8.3 g/dL (6.3-8.2)
[2025-08-25 16:13] LABS: NT-proBNP (BNP-Adult 18+) 60 pg/mL (<125); Troponin I < 0.012 ng/mL (0.01-0.034)
[2025-08-25 16:31] LABS: Thyroid Stimulating Hormone 3.75 uIU/mL (0.47-4.68)
--- NOTE | 2025-08-25 18:01 | PC.NURSE ---
Pt arrived from ED at 1725, A&Ox4, no c/o pain, hypertensive but otherwise VSS on RA. Lung sounds CTA, bowel sounds present, CMS intact bilaterally. No chest pain or SOB at this time. Tele placed per orders. Pt oriented to room and call light. Bed in low position, call light within reach, bed alarm activated.
--- NOTE | 2025-08-25 18:14 | P.HP_ITS ---
History of Present Illness History of Present Illness Date Patient Seen: 08/25/25 Time Patient Seen: 18:14 Chief complaint: WIC ref, palpitations, HBP Narrative: She PFSH Medical History Primary osteoarthritis of right knee Genitourinary syndrome of menopause Lichen sclerosus et atrophicus of the vulva Joint pain 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 Dyspareunia due to medical condition in female Meds Home Medications and Allergies Home Medications ?Medication ?Instructions ?Recorded ?Confirmed ?Type estradiol 0.05 mg/24 hr semiweekly 1 patch transdermal 2XW 02/23/25 05/20/25 History transdermal patch levothyroxine 50 mcg tablet 50 mcg PO DAILY 02/23/25 0 05/20/25 History (Synthroid) levothyroxine 75 mcg tablet 75 mcg PO DAILY 02/23/25 0 05/20/25 History (Synthroid) estradiol 0.01% (0.1 mg/gram) 1 g vaginal DAILY #42.5 grams 03/06/25 05/20/25 Rx vaginal cream (Estrace) estradiol 0.075 mg/24 hr transdermal Outside provider 04/07/25 05/20/25 History semiweekly transdermal patch clobetasol 0.05 % topical cream 1 applic topical DAILY #30 grams 05/20/25 05/20/25 Rx ondansetron HCl 4 mg tablet 4 mg PO Q8H PRN nausea and 08/21/25 Rx vomiting 5 days #15 tabs Allergies Allergy/AdvReac Type Severity Reaction Status Date / Time Sulfa (Sulfonamide AdvReac Anaphylaxis Verified 08/21/25 00:25 Antibiotics) Review of Systems Review of Systems Narrative: All else reviewed and otherwise unremarkable except as noted in the history and physical. Exam Vital Signs (past 8 hours): - 08/25/25 15:06 08/25/25 16:13 08/25/25 16:15 Temperature 97.8 F Pulse Rate 129 H 85 Pulse Rate [Orthostatic Sitting] Pulse Rate [Orthostatic Standing] Respiratory Rate 16 Blood Pressure 165/90 H 168/82 H Blood Pressure [Orthostatic Sitting] Blood Pressure [Orthostatic Standing] Pulse Oximetry 100 Oxygen Delivery Method Room Air Oxygen Flow Rate 08/25/25 16:15 08/25/25 16:32 08/25/25 17:00 Temperature Pulse Rate 90 94 H Pulse Rate [Orthostatic Sitting] Pulse Rate [Orthostatic Standing] Respiratory Rate 16 Blood Pressure 156/74 H Blood Pressure [Orthostatic Sitting] Blood Pressure [Orthostatic Standing] Pulse Oximetry 100 98 Oxygen Delivery Method Oxygen Flow Rate 08/25/25 17:00 08/25/25 17:25 08/25/25 18:03 Temperature 97.8 F Pulse Rate 86 91 H Pulse Rate [Orthostatic Sitting] 94 H Pulse Rate [Orthostatic Standing] 116 H Respiratory Rate 14 18 Blood Pressure 155/94 H Blood Pressure [Orthostatic Sitting] 132/96 H Blood Pressure [Orthostatic Standing] 87/50 L Pulse Oximetry 99 98 Oxygen Delivery Method Oxygen Flow Rate 0 Oxygen Delivery Method Room Air Oxygen Flow Rate 0 Narrative Exam Narrative: NAD, alert and oriented, fluent speech, calm. Normocephalic skull, EOMI, anicteric sclera, symmetric pupils. Oropharynx unremarkable, no droop. Neck supple, midline trachea, no adenopathy. Lungs clear, normal rate and effort. Heart regular, no murmur gallop or rub. Abdomen is soft, non distended and non tender. Extremities are free of edema. Skin is free of rash or lesions. Joints are not swollen or deformed. Judgment appears to be normal. Right eye periorbital hematoma. Objective ECG Impression: Intervals [place] Rate: 87 P: 70 CA: 138 QRS: 71 QRSD: 84 T: 75 QT: 354 QTc: 425 Interpretive Statements Normal sinus rhythm Imaging Multiple studies:: Radiologist's impression: Chest/Abd/pelvis CT: 1. Unremarkable thoracic and abdominal aorta and its attachments. 2. No pulmonary emboli. 3. No acute process in the chest. 4. Sigmoid diverticulitis. Comment: If the patient has not had recent colonoscopy, recommend direct visualization after acute symptoms resolve to exclude underlying lesion. CXR: No acute cardiopulmonary pathology. Labs 08/25/25 13:31 08/25/25 13:31 Labs: Laboratory Results - last 24 hr 08/25/25 13:31 WBC 4.7 RBC 4.96 Hgb 15.9 Hct 45.1 MCV 91.0 MCH 32.0 MCHC 35.1 RDW 13.0 Plt Count 185 Neut % (Auto) 66.2 Lymph % (Auto) 23.7 L [place] % (Auto) 7.1 Eos % (Auto) 2.0 Baso % (Auto) 1.0 Neut # (Auto) 3100 Lymph # (Auto) 1100 [place] # (Auto) 300 Eos # (Auto) 100 Baso # (Auto) 0 PT 12.1 INR 1.1 APTT 31 Sodium 139 Potassium 3.7 Chloride 104 Carbon Dioxide 23 BUN 14 Creatinine 0.82 Estimated GFR > 60 BUN/Creatinine Ratio 17.1 Glucose 97 Calcium 9.5 Magnesium 2.1 Total Bilirubin 1.2 AST 25 ALT 16 Alkaline Phosphatase 66 Total Creatine Kinase < 20 L Troponin I < 0.012 NT-Pro-B Natriuret Pep 60 Total Protein 8.3 H Albumin 4.8 Globulin 3.5 Albumin/Globulin Ratio 1.4 Lipase 91 TSH 3.75 Assessment & Plan Assessment & Plan narrative: 1. Atypical CP, active. 2. Hypertension, active. 3. Recent syncopal episodes. 4. Ehrlos Syndrome. PLAN: -stress test tomorrow -with telemetry -serial troponin -echo to rule out structural or valve disorders. 1 MN expected, supports observation status. Full code. HOWIE: 08/26. Time-Based Coding :: 35 min spent with patient and on the chart (including review of chart, obtaining history, exam, reviewing outside data, placing orders, documenting exam and treatment plan, and counseling patient) on 08/25. Quality MIPS - Admit I confirm the patient?s Advance Care Plan is present, Code status is documented, Surrogate decision maker is in patient?s record [If Yes, STOP here]: Yes MIPS - Meds 'Current medications' to include all prescriptions, [id number] products, herbals, cannabis/cannabidiol products, and vitamin/mineral/dietary (nutritional) supplements. I have utilized all available resources to obtain, update, or review the patient?s current medications. [If Yes, STOP here]: Yes
[2025-08-26 01:00] VITALS: BP 131/81; PULSE 71; RESP 18; TEMP 35.8; O2SAT 96
[2025-08-26 05:00] VITALS: BP 118/75; PULSE 76; RESP 18; TEMP 36.8; O2SAT 98
[2025-08-26 05:44] LABS: Troponin I < 0.012 ng/mL (0.01-0.034)
[2025-08-26 07:25] VITALS: BP 131/80; PULSE 69; RESP 18; TEMP 36.4; O2SAT 97
--- NOTE | 2025-08-26 12:57 | DI.ECHO.S_ITS ---
[place] [facility] : : [id number] : : [place] : : [id number] : : Phone: [phone] Echocardiogram Report + + :Name: JOSE ROBLES Study Date: 08/26/2025 Height: 66 in : :[facility] ReadingLocation: Weight: 140 lb : : Gender: Female BSA: 1.7 m2 : :: 1970 Age: 55 yrs BP: 131/83 mmHg: :Reason For Study: CHEST PAIN : :Ordering Physician: ATA, : :LIDIA Goodwin Performed By: Doug Bowles : :Referring: LIDIA BERUMEN : + + Interpretation Summary This is a technically difficult study characterized by lacking apical views. Normal sinus rhythm. Normal LV size and wall thickness. Normal wall motion and LV systolic function. Ejection fraction is 60-65%. based on available images. Normal chamber sizes. No significant valve abnormalities. No prior echo available for comparison. Procedure: A two-dimensional transthoracic echocardiogram with color flow and Doppler was performed in limited views only to assess EF. The study quality was technically difficult. There is no prior echocardiogram noted for this patient. The patient was in normal sinus rhythm during the exam. Left Ventricle: The left ventricle is normal in size and wall thickness. The ejection fraction is estimated to be 60-65%. Mitral Valve: The mitral valve leaflets appear mildly thickened. Posterior mitral valve leaflet is redundant but without significant regurgitation. Aortic Valve: The aortic valve is trileaflet. The aortic valve opens well. Tricuspid Valve: The tricuspid valve leaflets are thin and pliable. Pulmonic Valve: The pulmonic valve is not well visualized. There is mild pulmonic regurgitation. Great Vessels: The aortic root is normal size. The ascending aorta could not be visualized. The pulmonary is not well visualized. The IVC is dilated (diameter is greater than 2.1 cm) yet it collapses greater than 50% with a sniff. This suggests a right atrial pressure of 8 mm Hg. Pericardium/ Pleura There is no pericardial effusion. There is no pleural effusion. MMode/2D Measurements & Calculations LVIDd: 4.4 cm LVOT diam: 2.3 cm LVIDs: 2.8 cm Ao root diam: 3.3 cm FS: 37.1 % asc Aorta Diam: 3.1 cm EPSS: 0.38 cm Ao Arch Diam (Prox Trans): 1.5 cm IVSd: 0.68 cm LVPWd: 0.66 cm LV yin. diameter/BSA (cm/m^2): 2.6 LV sys. diameter/BSA (cm/m^2): 1.6 IVC diam: 2.3 cm Doppler Measurements & Calculations PA V2 max: 70.8 cm/sec PA V2 mean: 52.0 cm/sec PA mean P.2 mmHg PA pr(Accel): 37.9 mmHg Electronically signed by: Serenity Marcelino M.D. on Reading Physician:08/26/2025 05:14 PM
[2025-08-26 14:06] VITALS: BP 122/82; PULSE 90; RESP 18; TEMP 37.1; O2SAT 96
--- NOTE | 2025-08-26 14:24 | P.DS_ITS ---
History of Present Illness History of Present Illness Chief complaint: [facility] ref, palpitations, HBP Narrative: From H&P: Admitted with CP. He had recently been diagnosed with Erlos based on clinical criteria. She was had increased anxiety recently as well as blood pressures which have been low at times as well as presyncopal symptoms and occasional high blood pressures. She did have a fainting episode with a resulting facial laceration and right periorbital hematoma several days prior. She was admitted for further evaluation. She was scheduled to see Cardiology on Sunday morning, Dr. Marcelino at [facility]. She was no known cardiac history. Discharge Providers Provider Date of admission: 08/25/25 16:54 Discharge Date: 08/26/25 Primary care physician: Cinthia Ann ND Discharge provider: Alessandro Manning MD Summary Hospital Course Discharge Diagnosis: 1. Atypical CP, active. 2. Hypertension, active. 3. Recent syncopal episodes. 4. Ehrlos Syndrome. Hospital Course: She was admitted, telemetry was normal. She underwent a nuclear stress test which was read as low risk as well as having a limited view echo which appeared to suggest normal ventricular function and valves. TSH was normal. She was felt to be stable for discharge. She did have some volatile blood pressures with some high diastolic blood pressures while in the hospital. Her highest blood pressure was 1 68 systolic her highest diastolic was 96. Her lowest systolic was 87 and her lowest diastolic was 50. She does not take blood pressure pills currently. Status at Discharge Cognitive/behavioral status at discharge: oriented Functional status at discharge: independent ambulation Overall status at discharge: patient is back to baseline Time Spent with Patient Time spent: Greater than 30 minutes Exam Vital Signs (past 8 hours): - 08/26/25 07:25 08/26/25 14:06 Temperature 97.6 F 98.8 F Pulse Rate 69 90 Respiratory Rate 18 18 Blood Pressure 131/80 122/82 Pulse Oximetry 97 96 Oxygen Flow Rate 0 0 Oxygen Delivery Method Room Air Oxygen Flow Rate 0 Narrative Exam Narrative: NAD, alert and oriented. Fluent speech. Lungs are clear, normal rate and effort. Heart is regular, no murmur gallop or rub. Abdomen is soft, non distended. Extremities are free of edema. Objective ECG Impression: Intervals [place] Rate: 87 P: 70 KS: 138 QRS: 71 QRSD: 84 T: 75 QT: 354 QTc: 425 Interpretive Statements Normal sinus rhythm Imaging Multiple studies:: Radiologist's impression: CAP CTA: 1. Unremarkable thoracic and abdominal aorta and its attachments. 2. No pulmonary emboli. 3. No acute process in the chest. 4. Sigmoid diverticulitis. Comment: If the patient has not had recent colonoscopy, recommend direct visualization after acute symptoms resolve to exclude underlying lesion. Stress test: Low risk. ECHO: Read pending Labs 08/25/25 13:31 08/25/25 13:31 Labs: Laboratory Results - last 24 hr 08/25/25 08/26/25 13:31 04:45 WBC 4.7 RBC 4.96 Hgb 15.9 Hct 45.1 MCV 91.0 MCH 32.0 MCHC 35.1 RDW 13.0 Plt Count 185 Neut % (Auto) 66.2 Lymph % (Auto) 23.7 L Rhea % (Auto) 7.1 Eos % (Auto) 2.0 Baso % (Auto) 1.0 Neut # (Auto) 3100 Lymph # (Auto) 1100 Rhea # (Auto) 300 Eos # (Auto) 100 Baso # (Auto) 0 PT 12.1 INR 1.1 APTT 31 Sodium 139 Potassium 3.7 Chloride 104 Carbon Dioxide 23 BUN 14 Creatinine 0.82 Estimated GFR > 60 BUN/Creatinine Ratio 17.1 Glucose 97 Calcium 9.5 Magnesium 2.1 Total Bilirubin 1.2 AST 25 ALT 16 Alkaline Phosphatase 66 Total Creatine Kinase < 20 L Troponin I < 0.012 < 0.012 NT-Pro-B Natriuret Pep 60 Total Protein 8.3 H Albumin 4.8 Globulin 3.5 Albumin/Globulin Ratio 1.4 Lipase 91 TSH 3.75 PFSH Medical History Primary osteoarthritis of right knee Genitourinary syndrome of menopause Lichen sclerosus et atrophicus of the vulva Joint pain 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 Dyspareunia due to medical condition in female Social History household members: spouse and children Smoking Status: Never smoker alcohol intake: current Discharge Assessment & Plan Assessment and Plan Assessment: Atypical chest pain, volatile blood pressure, and presyncopal symptoms. Plan of Treatment: Discharge with no change in medications and cardiology follow up on Sunday as scheduled. Discharge Plan Discharge Plan Patient Disposition: Home Provider Discharge Comment: Normal stress test and limited view echo. Stable for discharge home with follow up with Cardiology on Sunday as scheduled. Discharge orders & Medications Prescriptions: Continued estradiol 0.05 mg/24 hr patch semiweekly 1 patch transdermal 2XW levothyroxine [Synthroid] 75 mcg tablet 75 mcg PO DAILY Patient Comments: Takes at HS estradiol [Estrace] 0.01 % (0.1 mg/gram) cream 1 g vaginal DAILY Qty: 42.5 3RF Rx Instructions: apply 1cm (1g) of cream to area as directed 2-3 times weekly alternating with clobetasol therapy clobetasol 0.05 % cream 1 applic topical DAILY Qty: 30 3RF Rx Instructions: apply thin film of medication to area as directed 2-3 times weekly alternating with topical estrace therapy diazepam 5 mg tablet 5 mg PO DAILY PRN (Reason: anxiety) estradiol 0.075 mg/24 hr patch semiweekly transdermal Follow up/Referrals: Cinthia Ann, MALLY [Primary Care Provider, Naturopathy] Discharge Health Status Multidrug resistant organism: No MDRO Diet/Activity/Treatments Diet: Regular Visit Report/Discharge Packet Instructions: DI for Syncope in Adults (Fainting) Stand Alone Forms: Patient Portal/API, Stroke Signs & Symptoms Discharge Data Primary Care Provider: Cinthia Ann Attending Provider: Alessandro Manning Admit Date/Time: 08/25/25 16:54
--- NOTE | 2025-08-26 16:58 | PC.NURSE ---
Patient d/c teaching done at bedside with spouse present. Patient states F/u appt with Cardiology is sched. already at [facility]. Patient states understanding of importance of that appt. Patient's IV removed and Tele removed. Pt req. to walk out of hospital to private vehicle. Escorted by PCT. Patient leaves in stable condition.
--- NOTE | 2025-08-27 10:39 | DI.NM.S_ITS ---
DATE OF SERVICE: 07/26/2025 PROCEDURE: Exercise perfusion study. INDICATIONS: Chest pain, palpitation. RADIOPHARMACEUTICAL: 27.5 millicurie technetium-99m Myoview IV was injected at stress and 11.6 millicurie technetium-99m Myoview IV was injected at rest. CARDIAC STRESS: The patient underwent exercise perfusion study under the supervision of an attending staff. She walked on [place] protocol for 7 minutes and 40 seconds, achieved 7.7 METS of workload, KIM -5%, 101% of target heart rate with maximum heart rate 167 beats per minute. Resting blood pressure 130/100 and peak blood pressure 150/102 mmHg. Baseline rhythm was sinus. During stress, no convincing ischemic changes seen. No significant arrhythmias. The patient has some shortness of breath. Normal recovery. RAW DATA: There is a breast implant shadow seen. GATED STUDY: Stress LV ejection fraction 89% and resting LV ejection fraction 87% without any wall motion abnormalities. Resting end- diastolic volume 68 mL. TID ratio 0.85, which is within normal limits. MYOCARDIAL PERFUSION SCAN: Stress supine, resting supine and stress prone images were compared to each other. There appears to be small size, mildly decreased perfusion of distal anterior wall extending into the anteroapex seen during stress supine and resting supine images. However, those defects got completely resolved during stress prone images. Stress prone images revealed normal myocardial perfusion. This suggests breast implant tissue attenuation artifact. CONCLUSION: I will call this study a normal myocardial perfusion study with evidence of breast implant attenuation artifact, which got resolved during stress prone images. Stress prone images revealed normal myocardial perfusion. Fair exercise tolerance. Mildly hypertensive blood pressure to begin with. No significant ischemia. No ischemic EKG changes. No chest pain. Overall, low-risk myocardial perfusion scan. Mana Waddell - MELISSA/balaji/SKB doc#: [id number]/job#: [id number] dd: 08/26/2025 12:56:00 dt: 08/26/2025 13:07:00 DICTATING MD/COPIES TO: Cathi Gaines MD COPIES MNE: MELE;
== END 2025-08-26 17:02 | disposition home or self-care (01) ==
LOC: ED 15:20 → AC 16:54
PROVIDERS: Student in an Organized Health Care Education/Training Program; Admitting Provider Hospitalist; Emergency Provider Emergency Medicine; PCP Naturopath; Referring Provider Emergency Medicine; Visit Provider Hospitalist
DX: R00.2 Palpitations (principal); R07.89 Other chest pain; I10 Essential (primary) hypertension; Q79.60 Ehlers-Danlos syndrome, unspecified; Z86.79 Personal history of other diseases of the circulatory system
CPT/HCPCS: 36415; 71045; 71275; 74174; 78452; 80053; 81003; 82550; 83690; 83735; 83880; 84443; 84484; 85025; 85610; 85730; 93005; 93017; 93307; 96360; 99284; G0378; A9502; J7030

== ENCOUNTER → 2025-09-04 13:28 | Outpatient (CLI) | payer OTHER, SELFPAY ==
[2025-08-25 18:33] VITALS: BMI 22.6
[2025-09-04 14:58] LABS: Blood Urea Nitrogen 12 mg/dL (7-17); Calcium 9.5 mg/dL (8.4-10.2); Carbon Dioxide 27 mmol/L (22-32); Chloride 104 mmol/L (98-107); Estimated Glomerular Filt Rate > 60 mL/min (>60); Glucose 82 mg/dL (70-99); HEMOLYSIS < 15 (0-50); Potassium 4.8 mmol/L (3.4-5.1); Sodium 139 mmol/L (137-145)
== END ==
PROVIDERS: PCP Naturopath; Referring Provider Internal Medicine; Visit Provider Internal Medicine
DX: R00.2 Palpitations (principal)
CPT/HCPCS: 36415; 80048

== ENCOUNTER 2025-09-14 10:51 | Emergency (ER) | payer OTHER, SELFPAY ==
[2025-08-25 18:33] VITALS: BMI 22.6
[2025-09-14] VITALS (8 sets, daily range): BP systolic 123–172; BP diastolic 61–96; PULSE 59–83; RESP 14–24; TEMP 36.4; O2SAT 98–99; BMI 21.9
--- NOTE | 2025-09-14 11:05 | DI.RAD.S_ITS ---
PROCEDURE: XR CHEST 1V INDICATIONS: Chest Pain TECHNIQUE: One view of the chest was acquired. COMPARISON: [facility], CR, XR CHEST 1V, 08/25/2025, 15:10. FINDINGS: Surgical changes and devices: Right axillary clips. Lungs and pleura: Lungs are clear. No pleural effusions or pneumothorax. Mediastinum: Mediastinal contours appear normal. Heart size is normal. Bones and chest wall: No suspicious bony lesions. Overlying soft tissues appear unremarkable. IMPRESSION: No acute cardiopulmonary abnormality is seen. Dictated by: Raphael Ordonez M.D. on 09/14/2025 at 11:29 Approved by: Raphael Ordonez M.D. on 09/14/2025 at 11:29
--- NOTE | 2025-09-14 11:05 | EKG_ITS ---
[address] [address] Test Date: 2025-09-14 Pat Name: Mana Waddell Department: Room: Gender: Female Pipe Liner: IFEANYI : 1970 Requested By: Order Number: [id number] Reading MD: Alessandro Manning Measurements Intervals [place] Rate: 82 P: 72 MD: 138 QRS: 64 QRSD: 90 T: 76 QT: 378 QTc: 441 Interpretive Statements Sinus rhythm with occasional premature ventricular complexes Electronically Signed On 09-19-2025 12:23:30 PST by Alessandro Manning
[2025-09-14 11:35] LABS: Add Manual Diff / Slide Review NO; Hematocrit 44.4 % (36-46); Hemoglobin 15.6 g/dL (12.0-16.0); Lymphocytes Absolute Auto 1200 /uL (1100-4500); Mean Corpuscular HGB Conc 35.1 % (30-36); Mean Corpuscular Hemoglobin 31.8 PG (26-34); Mean Corpuscular Volume 90.6 fL (80-100); Platelet Count 169 X10^3/uL (150-400)
[2025-09-14 11:37] LABS: INR 1.1 (0.9-1.3); Prothrombin Time 12.2 SECONDS (9.4-12.5)
[2025-09-14 11:44] LABS: Alanine Aminotransferase 13 IU/L (<35); Albumin 4.5 g/dL (3.5-5.0); Albumin Globulin Ratio 1.4 (1.0-2.8); Alkaline Phosphatase 54 U/L (38-126); Blood Urea Nitrogen 11 mg/dL (7-17); Calcium 9.4 mg/dL (8.4-10.2); Carbon Dioxide 22 mmol/L (22-32); Chloride 108 mmol/L (98-107); Creatine Kinase < 20 U/L (30-135); Estimated Glomerular Filt Rate > 60 mL/min (>60); Globulin 3.2 g/dL (1.7-4.1); Glucose 98 mg/dL (70-99); HEMOLYSIS 22 (0-50); Lipase 114 U/L (23-300); Magnesium 2.0 mg/dL (1.6-2.3); Potassium 3.9 mmol/L (3.4-5.1); Sodium 137 mmol/L (137-145); Total Protein 7.7 g/dL (6.3-8.2)
[2025-09-14 11:50] LABS: PTT Partial Thromboplastin Tim 32 SECONDS (25.1-36.5)
--- NOTE | 2025-09-14 11:53 | ED.ARRPALP ---
HPI - Arrhythmia/Palpitations <Moi Zaman PA-C - Last Filed: 09/14/25 17:45> General Chief Complaint: Arrhythmia/Palpitations Stated Complaint: Heart palpitations,light headedness, This morning Time Seen by Provider: 09/14/25 11:33 Source: patient Mode of arrival: Ambulatory History of Present Illness HPI narrative: 55-year-old female with past medical history palpitations, atypical chest pain presents to the ED with 1 day of palpitations, nausea, diarrhea. Patient was seen in the ED on 08/25/2025 for palpitations, following which she was able to see a coremaker helper. She is currently wearing a monitor that the coremaker helper had ordered. Patient states that she was feeling quite well since she was discharged from the ED last time, had sudden onset of palpitations this morning, felt nauseous, lightheaded, had an episode of diarrhea. Patient is unsure if there was any hematochezia, melena. Patient states that she has generally not feeling very well today. No fever, chills, chest pain, shortness of breath, dysuria, dizziness, syncope. Patient endorses frequent urination, however feels that it is correlated to her increased water intake. From the last visit, patient had an incidental finding of diverticulitis which was asymptomatic at the time and therefore not treated. Related Data Home Medications ?Medication ?Instructions ?Recorded ?Confirmed estradiol 0.05 mg/24 hr semiweekly 1 patch transdermal 2XW 02/23/25 08/25/25 transdermal patch levothyroxine 75 mcg tablet 75 mcg PO DAILY 02/23/25 08/25/25 (Synthroid) estradiol 0.075 mg/24 hr transdermal Outside provider 04/07/25 05/20/25 semiweekly transdermal patch diazepam 5 mg tablet 5 mg PO DAILY PRN anxiety 08/25/25 08/25/25 Previous Rx's ?Medication ?Instructions ?Recorded estradiol 0.01% (0.1 mg/gram) 1 g vaginal DAILY #42.5 grams 03/06/25 vaginal cream (Estrace) clobetasol 0.05 % topical cream 1 applic topical DAILY #30 grams 05/20/25 ciprofloxacin HCl 500 mg tablet 500 mg PO Q12H 5 days #10 tabs 09/14/25 metronidazole 500 mg tablet 500 mg PO Q8H 5 days #15 tabs 09/14/25 Allergies Allergy/AdvReac Type Severity Reaction Status Date / Time Sulfa (Sulfonamide AdvReac Anaphylaxis Verified 09/14/25 11:05 Antibiotics) Review of Systems <Moi Zaman PA-C - Last Filed: 09/14/25 17:45> Constitutional Constitutional: Denies chills, Denies fatigue, Denies fever(s), Denies frequent falls, Denies lethargy and Denies weakness Eyes Eyes: Denies change in vision, Denies eye discharge, Denies irritation and Denies loss of vision ENT Ears, Nose, Mouth, and Throat: Denies change in voice, Denies dizziness, Denies neck pain, Denies sore throat and Denies throat swelling Cardiovascular Cardiovascular: Denies chest pain, Denies irregular heart rhythm, Reports lightheadedness, Reports palpitations, Denies dyspnea, Denies dyspnea on exertion and Denies orthopnea Respiratory Respiratory: Denies cough, Denies dyspnea, Denies dyspnea on exertion and Denies wheezing Gastrointestinal Gastrointestinal: Denies abdominal pain, Denies change in bowel habits, Reports diarrhea, Reports nausea and Denies vomiting Musculoskeletal Musculoskeletal: Denies neck pain and Denies numbness Integumentary/Breasts Skin/Breast: Denies pruritus, Denies erythema, Denies rash and Denies wounds Neurologic Neurologic: Denies behavioral changes, Denies confusion, Denies dizziness, Denies frequent falls, Denies loss of vision, Denies numbness and Denies weakness Psychiatric Psychiatric: Denies anxiety, Denies behavioral changes, Denies confusion, Denies depression, Denies homicidal ideation and Denies suicidal ideation Endocrine Endocrine: Denies fatigue, Denies flushing and Reports palpitations Hematologic/Lymphatic Hematologic/Lymphatic: Denies easy bruising Allergic/Immunologic Allergic/Immunologic: Denies urticaria, Denies throat swelling and Denies wheezing Patient History <Moi Zaman PA-C - Last Filed: 09/14/25 17:45> Medical History Primary osteoarthritis of right knee Genitourinary syndrome of menopause Lichen sclerosus et atrophicus of the vulva Joint pain 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 Dyspareunia due to medical condition in female Social History household members: spouse and children Smoking Status: Unknown if ever smoked alcohol intake: current Smoking Status: Unknown if ever smoked Alcohol type: wine Exam <Moi Zaman PA-C - Last Filed: 09/14/25 17:45> Narrative Exam Narrative: Const General:?cooperative, healthy appearing and comfortable [facility] Head:?normal to inspection Ears:?hearing grossly normal bilaterally Nose:?external nose normal Face and sinus:?normal facial exam and sinuses nontender Mouth:?oral mucosae normal Throat:?posterior oropharynx normal Eyes General:?appearance normal, both eyes and all related structures Neck Neck:?normal visual inspection and no lymphadenopathy noted Resp Effort & Inspection:?normal respiratory effort Auscultation:?clear to auscultation bilaterally Cardio Rate:?regular rate Rhythm:?regular rhythm GI Abdomen is soft, nondistended, mildly tender to palpation in the left lower quadrant. Neuro General:?patient alert, patient awake and patient oriented x3 Initial Vital Signs Initial Vital Signs: Vital Signs Temperature 97.5 F L 09/14/25 10:51 Pulse Rate 78 09/14/25 10:51 Respiratory Rate 14 09/14/25 10:51 Blood Pressure 172/96 H 09/14/25 10:51 Pulse Oximetry 99 09/14/25 10:51 Oxygen Delivery Method Room Air 09/14/25 10:51 <Michael Robbins MD - Last Filed: 09/15/25 08:10> Initial Vital Signs Initial Vital Signs: Vital Signs Temperature 97.5 F L 09/14/25 10:51 Pulse Rate 78 09/14/25 10:51 Respiratory Rate 14 09/14/25 10:51 Blood Pressure 172/96 H 09/14/25 10:51 Pulse Oximetry 99 09/14/25 10:51 Oxygen Delivery Method Room Air 09/14/25 10:51 Course <Moi Zaman PA-C - Last Filed: 09/14/25 17:45> Orders Ordered: Discontinued Medications Aspirin (Aspirin 81 Mg Chew Tab) 324 mg PO NOW ONE Stop: 09/14/25 11:05 Last Admin: 09/14/25 11:55 Dose: Not Given Documented By: CB Vital Signs Vital signs: Vital Signs - 8 hr 09/14/25 10:51 09/14/25 11:00 09/14/25 11:02 Temperature 97.5 F L Pulse Rate 78 82 Respiratory Rate 14 Blood Pressure 172/96 H 172/96 H Pulse Oximetry 99 98 Oxygen Delivery Method Room Air 09/14/25 11:02 09/14/25 11:30 09/14/25 11:30 Temperature Pulse Rate 59 L 73 Respiratory Rate 17 Blood Pressure 155/71 H Pulse Oximetry 99 98 Oxygen Delivery Method 09/14/25 12:00 09/14/25 12:00 09/14/25 12:30 Temperature Pulse Rate 83 Respiratory Rate 24 Blood Pressure 160/82 H 134/73 Pulse Oximetry 98 Oxygen Delivery Method 09/14/25 12:30 09/14/25 14:09 09/14/25 14:09 Temperature Pulse Rate 68 69 Respiratory Rate 16 21 Blood Pressure 139/80 Pulse Oximetry 99 99 Oxygen Delivery Method 09/14/25 14:30 09/14/25 14:30 Temperature Pulse Rate 67 Respiratory Rate 19 Blood Pressure 123/61 Pulse Oximetry 98 Oxygen Delivery Method <Michael Robbins MD - Last Filed: 09/15/25 08:10> Orders Ordered: Discontinued Medications Aspirin (Aspirin 81 Mg Chew Tab) 324 mg PO NOW ONE Stop: 09/14/25 11:05 Last Admin: 09/14/25 11:55 Dose: Not Given Documented By: CB Vital Signs Vital signs: Vital Signs - 8 hr 09/14/25 10:51 09/14/25 11:00 09/14/25 11:02 Temperature 97.5 F L Pulse Rate 78 82 Respiratory Rate 14 Blood Pressure 172/96 H 172/96 H Pulse Oximetry 99 98 Oxygen Delivery Method Room Air 09/14/25 11:02 09/14/25 11:30 09/14/25 11:30 Temperature Pulse Rate 59 L 73 Respiratory Rate 17 Blood Pressure 155/71 H Pulse Oximetry 99 98 Oxygen Delivery Method 09/14/25 12:00 09/14/25 12:00 09/14/25 12:30 Temperature Pulse Rate 83 Respiratory Rate 24 Blood Pressure 160/82 H 134/73 Pulse Oximetry 98 Oxygen Delivery Method 09/14/25 12:30 09/14/25 14:09 09/14/25 14:09 Temperature Pulse Rate 68 69 Respiratory Rate 16 21 Blood Pressure 139/80 Pulse Oximetry 99 99 Oxygen Delivery Method 09/14/25 14:30 09/14/25 14:30 Temperature Pulse Rate 67 Respiratory Rate 19 Blood Pressure 123/61 Pulse Oximetry 98 Oxygen Delivery Method MDM - Arrhythmia/Palpitations <Moi Zaman PA-C - Last Filed: 09/14/25 17:45> Lab Data 09/14/25 11:20 09/14/25 11:20 Labs: Lab Results 09/14/25 09/14/25 Range/Units 11:20 13:50 WBC 4.4 L (4.5-11.0) X10^3/uL RBC 4.90 (4.0-5.2) X10^6/uL Hgb 15.6 (12.0-16.0) g/dL Hct 44.4 (36-46) % MCV 90.6 (80-100) fL MCH 31.8 (26-34) PG MCHC 35.1 (30-36) % RDW 12.9 (11.6-14.8) % Plt Count 169 (150-400) X10^3/uL Neut % (Auto) 61.7 (50-75) % Lymph % (Auto) 26.7 (25-40) % [place] % (Auto) 8.7 (3-14) % Eos % (Auto) 2.2 (2-4) % Baso % (Auto) 0.7 (0-2) % Neut # (Auto) 2700 (5093-4160) /uL Lymph # (Auto) 1200 (3749-8458) /uL [place] # (Auto) 400 (0-900) /uL Eos # (Auto) 100 (0-450) /uL Baso # (Auto) 0 (0-100) /uL PT 12.2 (9.4-12.5) SECONDS INR 1.1 (0.9-1.3) APTT 32 (25.1-36.5) SECONDS Sodium 137 (137-145) mmol/L Potassium 3.9 (3.4-5.1) mmol/L Chloride 108 H (98-107) mmol/L Carbon Dioxide 22 (22-32) mmol/L BUN 11 (7-17) mg/dL Creatinine 0.75 (0.52-1.04) mg/dL Estimated GFR > 60 (>60) mL/min BUN/Creatinine Ratio 14.7 (6-22) Glucose 98 (70-99) mg/dL Calcium 9.4 (8.4-10.2) mg/dL Magnesium 2.0 (1.6-2.3) mg/dL Total Bilirubin 1.4 H (0.2-1.3) mg/dL AST 23 (14-36) IU/L ALT 13 (<35) IU/L Alkaline Phosphatase 54 (38-126) U/L Total Creatine Kinase < 20 L < 20 L (30-135) U/L Troponin I < 0.012 < 0.012 (0.01-0.034) ng/mL NT-Pro-B Natriuret Pep 105 (<125) pg/mL Total Protein 7.7 (6.3-8.2) g/dL Albumin 4.5 (3.5-5.0) g/dL Globulin 3.2 (1.7-4.1) g/dL Albumin/Globulin Ratio 1.4 (1.0-2.8) Lipase 114 (23-300) U/L Urine Dip Bedside Urine Glucose Negative Bedside Urine Bilirubin - Negative Bedside Urine Ketone - Negative Urine Specific [place] 1.005 Bedside Urine Occult Blood - Negative Bedside Urine pH 6 Bedside Urine Protein - Negative Bedside Urine Urobilinogen - Negative Bedside Urine Nitrite - Negative Bedside Urine Leukocytes - Negative Esterase MDM Narrative Medical decision making narrative: 55-year-old female with past medical history palpitations, atypical chest pain presents to the ED with 1 day of palpitations, nausea, diarrhea. Full cardiac workup ordered. EKG is sinus rhythm with occasional premature ventricular complexes. No acute ST-T changes. No axis deviation. Chest x-ray without cardiopulmonary abnormalities. Labs unremarkable. Troponin and BNP within normal limits. Will obtain a CT abdomen pelvis to rule out complications with the diverticulitis versus other intra-abdominal pathology. CT abdomen pelvis shows moderate to severe sigmoid diverticulosis without CT evidence of acute diverticulitis. CT findings do not exclude mild diverticulitis. No other potential acute findings. Remote cholecystectomy and hysterectomy. Repeat troponin and EKG ordered. Repeat EKG is normal sinus rhythm. No acute ST-T changes. No axis deviation. Drop x2 negative. BNP x2 negative. Discussed findings with patient. Antibiotics prescribed for diverticulitis. Recommend starting with a clear liquid diet, slowly progressing to a normal diet over the next several days. Recommend follow-up with PCP as soon as possible. Recommend follow-up with cardiology as scheduled. ED return precautions were discussed with patient. Patient verbalized understanding. Medical records reviewed: Yes <iMchael Robbins MD - Last Filed: 09/15/25 08:10> Lab Data Labs: Lab Results 09/14/25 09/14/25 Range/Units 11:20 13:50 WBC 4.4 L (4.5-11.0) X10^3/uL RBC 4.90 (4.0-5.2) X10^6/uL Hgb 15.6 (12.0-16.0) g/dL Hct 44.4 (36-46) % MCV 90.6 (80-100) fL MCH 31.8 (26-34) PG MCHC 35.1 (30-36) % RDW 12.9 (11.6-14.8) % Plt Count 169 (150-400) X10^3/uL Neut % (Auto) 61.7 (50-75) % Lymph % (Auto) 26.7 (25-40) % [place] % (Auto) 8.7 (3-14) % Eos % (Auto) 2.2 (2-4) % Baso % (Auto) 0.7 (0-2) % Neut # (Auto) 2700 (3475-8911) /uL Lymph # (Auto) 1200 (3884-7994) /uL [place] # (Auto) 400 (0-900) /uL Eos # (Auto) 100 (0-450) /uL Baso # (Auto) 0 (0-100) /uL PT 12.2 (9.4-12.5) SECONDS INR 1.1 (0.9-1.3) APTT 32 (25.1-36.5) SECONDS Sodium 137 (137-145) mmol/L Potassium 3.9 (3.4-5.1) mmol/L Chloride 108 H (98-107) mmol/L Carbon Dioxide 22 (22-32) mmol/L BUN 11 (7-17) mg/dL Creatinine 0.75 (0.52-1.04) mg/dL Estimated GFR > 60 (>60) mL/min BUN/Creatinine Ratio 14.7 (6-22) Glucose 98 (70-99) mg/dL Calcium 9.4 (8.4-10.2) mg/dL Magnesium 2.0 (1.6-2.3) mg/dL Total Bilirubin 1.4 H (0.2-1.3) mg/dL AST 23 (14-36) IU/L ALT 13 (<35) IU/L Alkaline Phosphatase 54 (38-126) U/L Total Creatine Kinase < 20 L < 20 L (30-135) U/L Troponin I < 0.012 < 0.012 (0.01-0.034) ng/mL NT-Pro-B Natriuret Pep 105 (<125) pg/mL Total Protein 7.7 (6.3-8.2) g/dL Albumin 4.5 (3.5-5.0) g/dL Globulin 3.2 (1.7-4.1) g/dL Albumin/Globulin Ratio 1.4 (1.0-2.8) Lipase 114 (23-300) U/L Urine Dip Bedside Urine Glucose Negative Bedside Urine Bilirubin - Negative Bedside Urine Ketone - Negative Urine Specific [place] 1.005 Bedside Urine Occult Blood - Negative Bedside Urine pH 6 Bedside Urine Protein - Negative Bedside Urine Urobilinogen - Negative Bedside Urine Nitrite - Negative Bedside Urine Leukocytes - Negative Esterase Discharge Plan Departure Patient Disposition: Home Clinical Impression: Palpitations Instructions: DI for Palpitations Activity Restrictions/Additional Instructions: You were evaluated in the emergency department today for palpitations, diarrhea. Your cardiac workup was normal. We repeated a CT scan of the abdomen to check the diverticulitis that you were diagnosed with the last time around. The CT scan does show very mild diverticulitis. You are being prescribed antibiotics for it. It is also advisable for you to follow a clear liquid diet for the next 2 days, following which you can slowly advance your diet to a normal diet over the next several days. Please follow-up with your PCP as soon as possible. Return to the ED if you have worsening symptoms, chest pain, shortness of breath. Prescriptions: New metronidazole 500 mg tablet 500 mg PO Q8H 5 Days Qty: 15 0RF ciprofloxacin HCl 500 mg tablet 500 mg PO Q12H 5 Days Qty: 10 0RF No Action estradiol 0.05 mg/24 hr patch semiweekly 1 patch transdermal 2XW levothyroxine [Synthroid] 75 mcg tablet 75 mcg PO DAILY Patient Comments: Takes at HS estradiol [Estrace] 0.01 % (0.1 mg/gram) cream 1 g vaginal DAILY Qty: 42.5 3RF Rx Instructions: apply 1cm (1g) of cream to area as directed 2-3 times weekly alternating with clobetasol therapy clobetasol 0.05 % cream 1 applic topical DAILY Qty: 30 3RF Rx Instructions: apply thin film of medication to area as directed 2-3 times weekly alternating with topical estrace therapy diazepam 5 mg tablet 5 mg PO DAILY PRN (Reason: anxiety) estradiol 0.075 mg/24 hr patch semiweekly transdermal Referrals: Cinthia Ann ND [Primary Care Provider, Naturopathy] Stand Alone Forms: Patient Portal/API ED Sign-out <Michael Robbins MD - Last Filed: 09/15/25 08:10> Cosign ED Attending Cosignature Attestation: I was immediately available in the department for consultation. ?This documentation has been reviewed and I agree with assessment and plan. Supervised by Michael Robbins MD
[2025-09-14 11:55] LABS: NT-proBNP (BNP-Adult 18+) 105 pg/mL (<125); Troponin I < 0.012 ng/mL (0.01-0.034)
--- NOTE | 2025-09-14 12:10 | DI.CT.S_ITS ---
PROCEDURE: CT ABDOMEN PELVIS W CON INDICATIONS: hx diverticulitis; nausea; diarrhea; LLQ pain TECHNIQUE: After the administration of intravenous contrast, axial sections acquired from the lung bases to the pubic symphysis. Coronal and sagittal reformats were performed. For radiation dose reduction, the following was used: automated exposure control, adjustment of mA and/or kV according to patient size. COMPARISON: None. FINDINGS: Image quality: Diagnostic. Lower Chest: Bilateral mammoplasties. Normal heart size. Lung bases are clear. ABDOMEN: Liver: No solid mass. Gallbladder: Presumed absent. Biliary ducts: No biliary dilation. Pancreas: No ductal dilation. Spleen: Size is within normal limits. Adrenal Glands: No adrenal nodules. Kidneys and Ureters: No hydronephrosis. No solid mass. No complex renal cystic lesion which requires follow up. Stomach and Bowel: Normal colonic caliber, without significant wall thickening. Moderate to severe sigmoid diverticulosis. No CT evidence of acute diverticulitis. Appendix not visualized. Peritoneum: No abnormal intraperitoneal fluid. No free air. Ventral Wall: No significant ventral hernia. Abdominal Nodes: No retroperitoneal or mesenteric adenopathy by size criteria. Vessels: Aorta and inferior vena cava are normal in size. PELVIS: Pelvic Organs: Uterus is surgically absent. No adnexal masses.. Bladder: No bladder wall thickening, accounting for underdistention. Pelvic Nodes: No enlarged lymph nodes. Miscellaneous: No inguinal hernias are seen. Bones: No aggressive osseous abnormality. IMPRESSION: 1. Moderate to severe sigmoid diverticulosis without CT evidence of acute diverticulitis. CT findings do not exclude mild diverticulitis. Recommend correlation with clinical and laboratory findings. 2. No other potential acute findings. 3. Remote cholecystectomy and hysterectomy. Dictated by: Raphael Ordonez M.D. on 09/14/2025 at 13:31 Approved by: Raphael Ordonez M.D. on 09/14/2025 at 13:36
--- NOTE | 2025-09-14 14:07 | EKG_ITS ---
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
[2025-09-14 14:10] LABS: Creatine Kinase < 20 U/L (30-135)
[2025-09-14 14:23] LABS: Troponin I < 0.012 ng/mL (0.01-0.034)
== END 2025-09-14 15:10 | disposition home or self-care (01) ==
PROVIDERS: Emergency Medicine; Emergency Provider Student in an Organized Health Care Education/Training Program; PCP Naturopath
DX: R00.2 Palpitations (principal); R11.0 Nausea; R19.7 Diarrhea, unspecified; I49.3 Ventricular premature depolarization
CPT/HCPCS: 36415; 71045; 74177; 80053; 81003; 82550; 83690; 83735; 83880; 84484; 85025; 85610; 85730; 93005; 99283; 99284

== ENCOUNTER → 2025-09-28 13:31 | Outpatient (CLI) | payer OTHER, SELFPAY ==
[2025-08-25 18:33] VITALS: BMI 22.6
[2025-09-28 14:25] LABS: Blood Urea Nitrogen 11 mg/dL (7-17); Calcium 9.0 mg/dL (8.4-10.2); Carbon Dioxide 25 mmol/L (22-32); Chloride 107 mmol/L (98-107); Estimated Glomerular Filt Rate > 60 mL/min (>60); Glucose 84 mg/dL (70-99); HEMOLYSIS < 15 (0-50); Potassium 3.6 mmol/L (3.4-5.1); Sodium 139 mmol/L (137-145)
== END ==
PROVIDERS: PCP Naturopath; Referring Provider Naturopath; Visit Provider Nurse Practitioner Family
DX: R89.9 Unspecified abnormal finding in specimens from other organs, systems and tissues (principal)
CPT/HCPCS: 36415; 80048

== ENCOUNTER → 2025-10-14 10:11 | Outpatient (CLI) | payer OTHER, SELFPAY ==
[2025-08-25 18:33] VITALS: BMI 22.6
[2025-10-14 11:05] LABS: Add Manual Diff / Slide Review NO; Hematocrit 42.4 % (36-46); Hemoglobin 14.8 g/dL (12.0-16.0); Lymphocytes Absolute Auto 900 /uL (1100-4500); Mean Corpuscular HGB Conc 35.0 % (30-36); Mean Corpuscular Hemoglobin 31.9 PG (26-34); Mean Corpuscular Volume 91.2 fL (80-100); Platelet Count 177 X10^3/uL (150-400)
[2025-10-14 11:28] LABS: Alanine Aminotransferase 13 IU/L (<35); Albumin 4.1 g/dL (3.5-5.0); Albumin Globulin Ratio 1.5 (1.0-2.8); Alkaline Phosphatase 52 U/L (38-126); Blood Urea Nitrogen 16 mg/dL (7-17); Calcium 9.3 mg/dL (8.4-10.2); Carbon Dioxide 25 mmol/L (22-32); Chloride 108 mmol/L (98-107); Estimated Glomerular Filt Rate > 60 mL/min (>60); Globulin 2.7 g/dL (1.7-4.1); Glucose 69 mg/dL (70-99); HEMOLYSIS 17 (0-50); Potassium 4.1 mmol/L (3.4-5.1); Sodium 139 mmol/L (137-145); Total Protein 6.8 g/dL (6.3-8.2)
[2025-10-14 11:43] LABS: Free T3, Triiodothyronine Free 3.36 pg/mL (2.77-5.27); Free T4, Direct Thyroxine 1.34 ng/dL (0.78-2.19)
[2025-10-14 11:56] LABS: Thyroid Stimulating Hormone 0.904 uIU/mL (0.47-4.68)
== END ==
PROVIDERS: PCP Naturopath; Referring Provider Naturopath; Visit Provider Naturopath
DX: D72.819 Decreased white blood cell count, unspecified (principal); E03.9 Hypothyroidism, unspecified; E87.6 Hypokalemia; M35.7 Hypermobility syndrome
CPT/HCPCS: 80053; 84439; 84443; 84481; 85025